=== PATIENT | male | born 1975 | race Caucasian/White ===

== ENCOUNTER 2025-05-31 07:45 | Day surgery (SDC) | payer OTHER, SELFPAY ==
[2025-05-31] VITALS (10 sets, daily range): BP systolic 97–118; BP diastolic 58–73; PULSE 62–73; RESP 12–16; TEMP 36.4–38; O2SAT 95–100; BMI 26.9
[2025-05-31] MEDS: LACTATED RINGERS 1000 ML 1,000 ML 100 ML IV ×2 (08:15→11:50)
[2025-05-31] MEDS: SODIUM CHLORIDE 0.9 % (FLUSH) 10 ML SYRINGE IVF (08:19)
--- NOTE | 2025-05-31 08:36 | W.PM.H&PU ---
History & Physical Update History & Physical Update H&P Reviewed and patient assessed: No changes noted H&P Updates: Platelets of 88,000 were noted.
[2025-05-31] MEDS: BUPIVACAINE 0.25% 30 ML INJECTION (11:00)
--- NOTE | 2025-05-31 11:34 | P.ANES_ITS ---
Anesthesia Charges Start Date/Time Anesthesia Start Date: 05/31/25 Anesthesia Start Time: 08:55 Stop Date/Time Anesthesia Stop Date: 05/31/25 Anesthesia Stop Time: 11:32 Coding CPT Codes CPT Codes: ANESTH REPAIR OF HERNIA - 05657 ([id number]) P3 - PATIENT W/SEVERE SYS DISEASE, QZ - REGIONAL ENGAGEMENT CONSULTANT SVC W/O PHYS ASST BY
--- NOTE | 2025-05-31 11:34 | W.ANESCHARGE ---
Anesthesia Charges Start Date/Time Anesthesia Start Date: 05/31/25 Anesthesia Start Time: 08:55 Stop Date/Time Anesthesia Stop Date: 05/31/25 Anesthesia Stop Time: 11:32 Coding CPT Codes CPT Codes: ANESTH REPAIR OF HERNIA - 28268 ([id number]) P3 - PATIENT W/SEVERE SYS DISEASE, QZ - PEST CONTROL APPLICATOR SVC W/O CELL PREPARER BY
--- NOTE | 2025-05-31 11:36 | PM.GSPRC ---
Operative Note Date of procedure: 05/31/25 Pre-op diagnosis: 1. Symptomatic umbilical hernia. 2. Thrombocytopenia Post-op diagnosis: 1. Umbilical hernia with incarcerated omental fat. 2. Dilated periumbilical vessels and omental vessels. Type of Procedure: 1. Open umbilical hernia repair with 8 x 12 cm mesh. Indications: 49-year-old male was seen in clinic for evaluation of an umbilical hernia. Patient was scheduled for surgery in 2019 and his surgery was canceled because of pandemic. Since then patient continued to have pain at his umbilical bulge. He felt like the bulge has increased in size and he had episodes of bulge getting firm. Patient has 3 different hernia belts and tried to put 3 of those belts over his bulge to help with his pain. On clinical exam patient's abdomen was soft and not distended, there was a moderately sized umbilical bulge noted with skin thinning over the bulge. The bulge was reducible and the fascial defect was thought to be 3.5 cm. Given patient's clinical history and his physical exam, an open umbilical hernia repair was recommended. The procedure was discussed in detail. The risks associated procedure including infection, bleeding, injury to intra-abdominal organs, and hernia recurrence were all discussed with the patient, and he agreed to proceed. Of note patient has a history of alcohol abuse. He stopped drinking alcohol. His platelets on preoperative exam were 88,000. Procedure Description: After discussing the risks and benefits of the procedure, the patient signed informed consent.? The operative site was marked and the patient was brought to the operating room and placed on the operating table in supine position.? Care was taken to pad the patient's pressure points.?? The patient was then intubated by anesthesia.?? The operative site was then prepped and draped in the usual sterile fashion.? A time-out was then performed. Skin incision was marked with a marking pen inferior to the umbilicus. An elliptical horizontal skin incision was made with a scalpel excising ellipse of skin. This was not sent to pathology. Subcutaneous fat blood vessels were dilated most likely due to patient's history of alcoholic cirrhosis. Hemostasis achieved with cautery. The hernia sac was identified and was the size of an orange. The hernia sac was thickened on palpation. Soft tissues around the anterior fascial defect were dissected with cautery. The hernia sac was mobilized off subcutaneous fat and anterior fascia with cautery. Anterior fascia was grasped with Marely clamps and preperitoneal space was then developed with cautery. The tissues were friable and bleeding was controlled with cautery. More prominent dilated veins were clamped, divided, and tied with Vicryl ties. The hernia sac was then entered and was 5 mm in thickness. The hernia sac contents were eviscerated and omentum was found to be adherent to the inside of the hernia sac. Those adhesions were taken down with cautery and clamps and Vicryl ties to prevent bleeding. The mobilized omentum was then pushed into the abdomen. No bleeding was seen. The hernia sac was then excised with cautery. Hemostasis achieved with cautery. The hernia sac was not sent to pathology. The free edges of the hernia sac were then grasped with Maile clamps. The hernia sac was then closed with a running locking Vicryl suture. This was pushed into the preperitoneal space. The fascial defect was measuring 4 x 2.5 cm. No active bleeding was seen in preperitoneal space but tissues were friable. I elected to spray 1 g of Mony into preperitoneal space. I then used 8 x 12 cm Ventrio mesh and placed it into the preperitoneal space. The mesh laid well and had good overlap surrounding the fascial defect. The mesh was then secured in place with interrupted 0-0 Nurolon sutures. The fascia was closed over the mesh with a running 0-0 Vicryl suture. Local anesthetic was injected at the surgical site. Subcutaneous space was then irrigated with warm normal saline. The umbilicus was tacked down to the anterior fascia with interrupted 3-0 Vicryl sutures. The subcutaneous fat was reapproximated with interrupted Vicryl sutures to minimize subcutaneous space. The dermis was reapproximated with interrupted 3-0 Vicryl sutures. The skin was closed with a running 4-0 Monocryl stitch. Steri-Strips and sterile gauze were placed over the incision, and the dressings were secured in place with tape. All counts were correct at the end of the case. ? The patient was then woken and transported to the recovery area in stable condition. ? The patient tolerated the procedure well. Findings: [place] sized hernia sac with incarcerated omentum. Omentum was mobilized and pushed intra-abdominally. The hernia sac was excised. The fascial defect was 4 x 2.5 cm. This was repaired with Ventrio 8 x 12 cm mesh. Anesthesia: GETA Surgeon: Janet Vaca MD Estimated blood loss (mL): 20 Condition: stable Disposition: PACU
== END 2025-05-31 12:39 | disposition home or self-care (01) ==
PROVIDERS: PCP Family Medicine; Visit Provider Surgery
PROC: (CPT 49594; principal; 2025-05-31 09:15)
DX: K42.0 Umbilical hernia with obstruction, without gangrene (principal); I87.8 Other specified disorders of veins; K70.30 Alcoholic cirrhosis of liver without ascites
CPT/HCPCS: 49594; 00830; A4467; C1781; J0330; J0665; J0690; J1100; J2405; J2704; J2710; J3010; J3490; J7120